=== PATIENT | female | born 1965 ===

== ENCOUNTER → 2017-08-26 | Outpatient (CLI) | payer OTHER ==
[~2017-08-26] MED LIST: ASPI81CH PO; Glipizide Xl2.5 MG PO; LISI5; METF500C PO; PIOG15; SIMV40
[2017-08-26 16:45] LABS: Appearance, Urine Hazy (Clear); Bilirubin, Urine Neg (Neg); Blood, Urine 2+ (Neg); Color, Urine Yellow (P-Yellow); Glucose Qualitative, Urine Neg (Neg); Ketones, Urine Neg (Neg); Leukocyte Esterase, Urine 3+ (Neg); Nitrite, Urine Neg (Neg); Protein, Urine Neg (Neg); Specific Gravity, Urine 1.015 (1.003-1.022); Urobilinogen, Urine NORM (Normal)
[2017-08-26 17:01] LABS: Bacteria Mod /hpf; Squamous Epithelial Cells Many /hpf (Few); White Blood Cells, Urine 25-50 /hpf (0-5); Yeast/Fungi Urine Few /hpf
[2017-08-26 17:02] LABS: Amorphous Light (0-Heavy)
== END ==
LOC: LAB 15:23
PROVIDERS: Nurse Practitioner Family
DX: R30.0 Dysuria (principal)
CPT/HCPCS: 81001; 87086

== ENCOUNTER → 2021-05-29 | Outpatient (CLI) | payer OTHER ==
[~2021-05-29] MED LIST changes: +ALOGLIPTIN25 M1 PO; +CINNAMON PO; +ERGO400 PO; +Lipitor20 MG PO; -PIOG15; +PIOG15 PO
[2021-05-29 18:23] LABS: BASOPHILS ABSOLUTE AUTO 0.03 K/mm3 (0.00-0.23); BASOPHILS PERCENT AUTO 0 % (0-2); EOSINOPHILS ABSOLUTE AUTO 0.16 K/mm3 (0.00-0.68); EOSINOPHILS PERCENT AUTO 2 % (0-6); Hematocrit 38.8 % (33.0-51.0); Hemoglobin 12.9 g/dL (11.5-16.0); IMMATURE GRAN ABSOLUTE AUTO 0.05 K/mm3 (0.00-0.10); IMMATURE GRAN PERCENT AUTO 1 % (0-1); LYMPHOCYTES ABSOLUTE AUTO 2.07 K/mm3 (0.84-5.20); LYMPHOCYTES PERCENT AUTO 21 % (21-46); MONOCYTES ABSOLUTE AUTO 0.52 K/mm3 (0.16-1.47); MONOCYTES PERCENT AUTO 5 % (4-13); Mean Corpuscular HGB Conc 33.2 g/dL (31.5-36.5); Mean Corpuscular Volume 87 fL (80-100); Mean Platelet Volume 11.2 fL (9.1-12.4); NEUTROPHILS ABSOLUTE AUTO 6.98 K/mm3 (1.96-9.15); NEUTROPHILS PERCENT AUTO 71 % (41-73); Platelet Count 269 K/mm3 (150-400); RDW Coefficient Variation 14.1 % (11.7-14.2); RDW Standard Deviation 45.1 fL (35.1-46.3); Red Blood Cell Count 4.45 M/mm3 (3.80-5.20); White Blood Cell Count 9.81 K/mm3 (4.00-11.30)
[2021-05-29 18:38] LABS: Alanine Aminotransfer (ALT/SGP 45 U/L (12-78); Albumin, Blood 3.7 g/dL (3.4-5.0); Albumin/Globulin Ratio 0.8 (0.8-1.8); Alk Phos 125 U/L (40-126); Anion Gap 9 mmol/L (6-16); Aspartate Aminotrans (AST/SGOT 12 U/L (12-37); Bilirubin, Total 0.9 mg/dL (0.1-1.0); Blood Urea Nitrogen 12 mg/dL (8-24); CO2, Blood 27 mmol/L (21-32); Calcium, Blood 8.8 mg/dL (8.5-10.1); Chloride, Blood 99 mmol/L (98-108); Globulin, Blood 4.4 g/dL (2.2-4.0); Glomerular Filtration Rate >60 (60-); Glucose, Blood 256 mg/dL (70-99); Potassium, Blood 3.3 mmol/L (3.5-5.5); Sodium, Blood 135 mmol/L (136-145); Total Protein, Blood 8.1 g/dL (6.4-8.2)
== END | disposition home or self-care (01) ==
LOC: LAB SHORT 18:17 → LAB 18:17
PROVIDERS: Physician Assistant
DX: R10.9 Unspecified abdominal pain (principal)
CPT/HCPCS: 80053; 83690; 85025

== ENCOUNTER 2021-05-31 12:08 | Observation (INO) | payer OTHER ==
[~2021-05-31] VITALS: Ht 165.1 cm; Wt 106.6 kg
[~2021-05-31 12:08] MED LIST changes: -ALOGLIPTIN25 M1 PO; -CINNAMON PO; -ERGO400 PO; -Lipitor20 MG PO
[2021-05-31 12:44] LABS: BASOPHILS ABSOLUTE AUTO 0.04 K/mm3 (0.00-0.23); BASOPHILS PERCENT AUTO 1 % (0-2); EOSINOPHILS ABSOLUTE AUTO 0.21 K/mm3 (0.00-0.68); EOSINOPHILS PERCENT AUTO 3 % (0-6); Hematocrit 40.7 % (33.0-51.0); Hemoglobin 13.4 g/dL (11.5-16.0); IMMATURE GRAN ABSOLUTE AUTO 0.01 K/mm3 (0.00-0.10); IMMATURE GRAN PERCENT AUTO 0 % (0-1); LYMPHOCYTES ABSOLUTE AUTO 1.43 K/mm3 (0.84-5.20); LYMPHOCYTES PERCENT AUTO 18 % (21-46); MONOCYTES ABSOLUTE AUTO 0.36 K/mm3 (0.16-1.47); MONOCYTES PERCENT AUTO 4 % (4-13); Mean Corpuscular HGB 28.9 pg (26.0-34.0); Mean Corpuscular HGB Conc 32.9 g/dL (31.5-36.5); Mean Corpuscular Volume 88 fL (80-100); Mean Platelet Volume 11.3 fL (9.1-12.4); NEUTROPHILS ABSOLUTE AUTO 6.04 K/mm3 (1.96-9.15); NEUTROPHILS PERCENT AUTO 75 % (41-73); Platelet Count 283 K/mm3 (150-400); RDW Coefficient Variation 14.1 % (11.7-14.2); RDW Standard Deviation 45.3 fL (35.1-46.3); Red Blood Cell Count 4.63 M/mm3 (3.80-5.20); White Blood Cell Count 8.09 K/mm3 (4.00-11.30)
[2021-05-31 13:06] LABS: Alanine Aminotransfer (ALT/SGP 32 U/L (12-78); Albumin, Blood 3.4 g/dL (3.4-5.0); Albumin/Globulin Ratio 0.7 (0.8-1.8); Alk Phos 110 U/L (50-136); Anion Gap 7 mmol/L (6-16); Aspartate Aminotrans (AST/SGOT 14 U/L (12-37); Bilirubin, Total 1.5 mg/dL (0.1-1.0); Blood Urea Nitrogen 10 mg/dL (8-24); Bun/Creatinine Ratio 23.5 (12.0-20.0); CO2, Blood 27 mmol/L (21-32); Calcium, Blood 9.1 mg/dL (8.5-10.1); Chloride, Blood 107 mmol/L (98-108); Creatinine, Blood 0.43 mg/dL (0.40-1.00); Globulin, Blood 4.6 g/dL (2.2-4.0); Glomerular Filtration Rate >60 (60-); Glucose, Blood 228 mg/dL (70-99); Potassium, Blood 4.2 mmol/L (3.5-5.5); Sodium, Blood 141 mmol/L (136-145)
[2021-05-31] MEDS ORDERED: ERGO400 PO (16:37)
[2021-05-31 18:13] LABS: Influenza A, PCR NEGATIVE (NEGATIVE); Influenza B, PCR NEGATIVE (NEGATIVE); Resp Syncytial Virus, PCR NEGATIVE (NEGATIVE); SARS-Cov-2 (COVID-19) PCR, MMC NEGATIVE (NEGATIVE)
[2021-05-31] MEDS ORDERED: CINNAMON PO (18:18)
--- NOTE | 2021-05-31 18:40 | NUR ---
DENIES ANY PAIN, CLEAR LIQUIDS OK PER DR. MICHAEL NPO AFTER MN FOR OR TOMORROW, PT AWARE, ORIENTED TO ROOM AND CALL SYSTEM, NO ACUTE CHANGES THIS SHIFT.
--- NOTE | 2021-06-01 05:56 | NUR ---
SHIFT SUMMARY: PT A&O X4. VS WNL. PT HAS BEEN NPO SINCE MIDNIGHT FOR PLANNED SURGERY TODAY. PAIN TOLERABLE THROUGHOUT NIGHT WITHOUT NEED FOR PAIN MEDICATION. PT INDEPENDENT IN ROOM AND VOIDING WELL. IVF AND IV ABX INFUSING PER EMAR. NO COVERAGE REQUIRED FOR CBG'S.
--- NOTE | 2021-06-01 11:18 | NUR ---
BROUGHT TO [facility] ADMISSION TO UNIT STARTED. BROUGHT TO BAY 2 FROM ROOM 220 BY KRISTIN
--- NOTE | 2021-06-01 11:50 | NUR ---
GLASSES, PHONE AND X2 RINGS TAKEN TO PACU DEPT.
[2021-06-01] MEDS ORDERED: ALOGLIPTIN25 M1 PO (12:05)
[2021-06-01] MEDS ORDERED: Lipitor20 MG PO (12:06)
--- NOTE | 2021-06-01 13:24 | NUR ---
PT IN OR.
--- NOTE | 2021-06-01 14:47 | NUR ---
S/P NAYA REID BY DR. MCALLISTER, A&OX4, MEDICATED FOR PAIN IN PACU PRIOR TO ARRIVAL TO ROOM, RATES PAIN AT 5/10, DENIES ANY NAUSEA, MONITOR VS AND ANY CHANGES, MEDICATE FOR PAIN PRN.
--- NOTE | 2021-06-01 17:53 | NUR ---
VSS, DENIES ANY NEED FOR PAIN MEDS AT THIS TIME, AMBULATED TO THE BATHROOM, TOLERATING REGULAR DINNER WELL, NO ACUTE CHANGES THIS SHIFT.
--- NOTE | 2021-06-02 07:52 | NUR ---
SHIFT SUMMARY: PT POD#1 FOR A LAP FRANKLIN. LAP SITES C/D/I WITH DERMABOND. PT DENIES PASSING FLATUS. AMBULATING IN ROOM. VOIDING WELL. TOLERATING ADA DIET. DENIES N/V. ABX COMPLETE. PT SALINE LOCKED. PLAN FOR DISCHARGE TODAY
[2021-06-02] MEDS ORDERED: METF500 PO (08:53)
[2021-06-02] MEDS ORDERED: ACET325 PO (10:20)
[2021-06-02] MEDS ORDERED: OXAYDO5 M1 PO (10:23)
--- NOTE | 2021-06-02 13:15 | NUR ---
DISCHARGE PT PROVIDED WITH WRITTEN AND VERBAL DISCHARGE INSTRUCTIONS. PT REPORTED UNDERSTANDING. PAIN MANAGED WITH TYLENOL AT DISCHARGE, PT SENT WITH PRESCRIPTION FOR OXYCODONE NEEDED AND PROVIDED EDUCATION REGARDING THIS MEDICATION. PT HAD SCANT RED DRAINAGE FROM RUQ ABD SITE, SITE APPEARED TO HAVE STOPPED DRAINING AT TIME OF DISCHARGE. PT DENIED PASSING FLATUS BEFORE DISCHARGE BUT DID HAVE ACTIVE BOWEL SOUNDS X4 QUADRANTS AND TOLERATED PO. PT EDUCATED TO AMBULATE TO ENCOURAGE RETURN OF BOWEL FUNCTION AND TO PREVENT DVT'S. PT ESCORTED OUT IN W/C BY MISTY STUDENT NURSE.
--- NOTE | 2021-06-02 16:18 | NUR ---
06/02/21 1618 Tequila Marvin VERIFICATIONS; EDIT CHART.
== END 2021-06-02 13:10 | disposition home or self-care (01) ==
LOC: ER 12:08 → SURS 12:09
PROVIDERS: Physician Assistant; Surgery; ADMIT Surgery
PROC: 0FT44ZZ Resection of Gallbladder, Percutaneous Endoscopic Approach (ICD-10-PCS; principal; 2021-06-01 11:00)
PROC: BF13YZZ Fluoroscopy of Gallbladder and Bile Ducts using Other Contrast (ICD-10-PCS; principal; 2021-06-01 11:00)
DX: K80.12 Calculus of gallbladder with acute and chronic cholecystitis without obstruction (principal); K85.10 Biliary acute pancreatitis without necrosis or infection; E11.9 Type 2 diabetes mellitus without complications; R16.0 Hepatomegaly, not elsewhere classified; K76.0 Fatty (change of) liver, not elsewhere classified; Z20.822 Contact with and (suspected) exposure to COVID-19; Z88.8 Allergy status to other drugs, medicaments and biological substances; Z79.84 Long term (current) use of oral hypoglycemic drugs
CPT/HCPCS: 0241U; 74300; 80053; 82947; 83690; 85025; 96365; 99285-25; A9270; C1729; J0295; J1100; J1815; J1885; J2250; J2405; J2704; J3010; J7120